=== PATIENT | female | born 1990 | race Caucasian/White ===

== ENCOUNTER 2022-09-12 11:25 | Emergency (ER) | payer OTHER ==
[2022-09-12 11:36] VITALS: BP 148/77; PULSE 78; RESP 16; TEMP 97.7; BMI 20.5
[2022-09-12] MEDS ORDERED: ACETAMINOPHEN 325 MG TABLET (FP) PO ONE (11:58)
[2022-09-12] MEDS ORDERED: KETOROLAC TROMETHAMINE 30 MG/1 ML VIAL IVPUSH ONE (11:58)
[2022-09-12] MEDS ORDERED: ACETAMINOPHEN 325 MG TABLET (FP) ONE (12:13)
[2022-09-12] MEDS ORDERED: KETOROLAC TROMETHAMINE 30 MG/1 ML VIAL ONE (12:13)
[2022-09-12 13:04] LABS: HEMATOCRIT 37.6 % (32.4-45.2); MCH 33.3 pg (25.7-33.7); MCHC 34.5 g/dl (32.0-36.0); MEAN CELL VOLUME 96.5 fl (80-96); MEAN PLT VOLUME 8.3 fl (7.5-11.1); PLATELET COUNT 203.1 10^3/uL (134-434); RDW 13.2 % (11.6-15.6); WHITE BLOOD COUNT 6.2 10^3/uL (4.0-10.8)
[2022-09-12 13:11] LABS: BILIRUBIN,TOTAL 0.6 mg/dl (0.2-1); CALCIUM 8.8 mg/dl (8.5-10); CREATININE 0.6 mg/dl (0.55-1.3); PLATELET ESTIMATE ADEQUATE; TOT PROT 7.2 g/dl (6.4-8.2)
[2022-09-12 13:20] LABS: HCG,QUALITATIVE URINE Negative
== END 2022-09-12 15:35 | disposition home or self-care (01) ==
LOC: EDBD 11:25 → FER 11:25
PROC: 3E0333Z Introduction of Anti-inflammatory into Peripheral Vein, Percutaneous Approach (ICD-10-PCS; principal; 2022-09-12)
DX: R10.9 Unspecified abdominal pain (principal)
CPT/HCPCS: 36415; 74177-TC; 80053; 81003; 83690; 84703; 85027; 99285-25; Q9967